=== PATIENT | male | born 1955 | race Caucasian/White ===

== ENCOUNTER 2017-08-31 07:34 | Day surgery (SDC) | payer OTHER ==
[~2017-08-31] VITALS: Ht 177.8 cm; Wt 113.1 kg
[~2017-08-31 07:34] MED LIST: Augmentin 875-1 EACH PO; Multivitamin1 EAC1 PO; Omeprazole20 M1 PO; RABIES VACCINE; Vitamin C100 MG PO
== END 2017-08-31 09:51 | disposition home or self-care (01) ==
LOC: ORSCSDS 07:34
PROVIDERS: Internal Medicine Gastroenterology
PROC: 0DBH8ZX Excision of Cecum, Via Natural or Artificial Opening Endoscopic, Diagnostic (ICD-10-PCS; principal; 2017-08-31 08:45)
PROC: 0DBM8ZX Excision of Descending Colon, Via Natural or Artificial Opening Endoscopic, Diagnostic (ICD-10-PCS; principal; 2017-08-31 08:45)
DX: Z12.11 Encounter for screening for malignant neoplasm of colon (principal); D12.0 Benign neoplasm of cecum; K63.5 Polyp of colon; K64.8 Other hemorrhoids; K57.30 Diverticulosis of large intestine without perforation or abscess without bleeding; K22.70 Barrett's esophagus without dysplasia; Z79.899 Other long term (current) drug therapy; Z86.010 Personal history of colon polyps
CPT/HCPCS: 88305; J0330; J1980; J2405; J7120

== ENCOUNTER 2018-12-05 10:15 | Day surgery (SDC) | payer OTHER ==
[~2018-12-05] VITALS: Ht 180.3 cm; Wt 99.3 kg
== END 2018-12-05 12:00 | disposition home or self-care (01) ==
LOC: ORSCSDS 10:15
PROVIDERS: Internal Medicine Gastroenterology
PROC: 0DB58ZX Excision of Esophagus, Via Natural or Artificial Opening Endoscopic, Diagnostic (ICD-10-PCS; principal; 2018-12-05 13:00)
DX: K22.70 Barrett's esophagus without dysplasia (principal); K44.9 Diaphragmatic hernia without obstruction or gangrene; K21.9 Gastro-esophageal reflux disease without esophagitis; Z79.899 Other long term (current) drug therapy
CPT/HCPCS: 88305; J2704; J7120

== ENCOUNTER → 2020-05-13 | Outpatient (CLI) | payer OTHER | END | disposition home or self-care (01) | LOC: LAB SHORT 08:27 → PLD 08:27 | DX: D48.5 Neoplasm of uncertain behavior of skin (principal) | CPT/HCPCS: 88305 ==

== ENCOUNTER 2024-09-10 07:17 | Day surgery (SDC) | payer OTHER ==
[~2024-09-10] VITALS: Ht 177.8 cm; Wt 103.6 kg
[2024-09-10] MEDS ORDERED: propofoL 50 ML IV ONE (07:35)
[2024-09-10] MEDS ORDERED: Lactated Ringer's 1,000 ML IV ONE ×2 (07:35→08:19)
[2024-09-10] MEDS ORDERED: VALTREX500 M2 (07:40)
[2024-09-10 09:51] VITALS: BP 113/76
== END 2024-09-10 09:58 | disposition home or self-care (01) ==
LOC: ORSCSDS 07:17
PROVIDERS: Specialist
PROC: 0DJD8ZZ Inspection of Lower Intestinal Tract, Via Natural or Artificial Opening Endoscopic (ICD-10-PCS; principal; 2024-09-10 09:00)
DX: R10.32 Left lower quadrant pain (principal); Z86.0101 Personal history of adenomatous and serrated colon polyps; K22.70 Barrett's esophagus without dysplasia; K64.8 Other hemorrhoids; K57.30 Diverticulosis of large intestine without perforation or abscess without bleeding; Z79.899 Other long term (current) drug therapy
CPT/HCPCS: J2704; J7120